=== PATIENT | male | born 1980 | race Two or more races ===

== ENCOUNTER 2022-03-10 11:12 | Emergency (ER) | payer OTHER ==
[2022-03-10 11:24] VITALS: BP 167/106; PULSE 78; RESP 18; TEMP 98.6; BMI 28.5
== END 2022-03-10 13:41 | disposition home or self-care (01) ==
LOC: JER 11:12
DX: I10 Essential (primary) hypertension (principal)
CPT/HCPCS: 93005; 93010; 99283-25

== ENCOUNTER 2023-07-03 11:33 | Emergency (ER) | payer OTHER ==
[2023-07-03 11:42] VITALS: BP 138/80; PULSE 78; RESP 18; TEMP 98.2; BMI 29.2
[2023-07-03] MEDS ORDERED: ACETAMINOPHEN 500 MG TABLET (FP) PO ONE (13:41)
[2023-07-03] MEDS ORDERED: IBUPROFEN 600 MG TABLET (FP) PO ONE ×2 (13:41→13:42)
[2023-07-03] MEDS ORDERED: ACETAMINOPHEN 500 MG TABLET (FP) ONE (13:42)
== END 2023-07-03 13:56 | disposition home or self-care (01) ==
LOC: JER 11:33 → JERFT 11:33
DX: M79.644 Pain in right finger(s) (principal); M79.89 Other specified soft tissue disorders; L03.113 Cellulitis of right upper limb
CPT/HCPCS: 73130-TC-RT-FY; 99283-25